=== PATIENT | female | born 1970 | race Two or more races ===

== ENCOUNTER 2024-03-26 14:03 | Outpatient (RCR) | payer MEDICAID, SELFPAY | END 2024-04-11 23:59 | disposition home or self-care (01) | LOC: CPTX 14:03 | PROVIDERS: PCP Student in an Organized Health Care Education/Training Program; Referring Provider Student in an Organized Health Care Education/Training Program; Visit Provider Student in an Organized Health Care Education/Training Program | DX: Z53.8 Procedure and treatment not carried out for other reasons (principal) ==

== ENCOUNTER 2024-08-07 13:00 | Outpatient (RCR) | payer MEDICAID, SELFPAY ==
--- NOTE | 2024-07-19 13:37 | PT.OIERPT ---
PT OP Initial Eval Patient Information Outpatient Physical Therapy Treatment Date: 07/19/24 Visit Reasons: Bilateral pain in legs Medical Diagnosis: M79.605 M79.604 Treatment Dx #1: LBP with B LE radiculopathy Start of Care: 07/19/24 Date of Onset: 3 months ago Smoking Status Smoking Status: Never smoker Initial Assessment Subjective: Pt is 54 yr old khmer speaking female with c/o LBP that radiates into B LE's worse in the gastrocs and heels. Increased pain with bending, and getting up after sitting and turning over in bed at night. She is on disability from picking oranges. PMH: pre-DM, gallstones Imaging: none Pt goal: to get rid of the LBP and LE pain Objective: Trunk ArOM: ? B SB 50% of normal with pain B ? Extension: 30% with relief ? Flexion: 12 from floor with LBP ? B rotation: 60% with pain ? TTP: moderate paraspinals L5-S1 ? Neuro: R SLR: positive Assessment: Pt presents with trunk flexion sensitivity and overlying myofascial pain ? and TTP around L5-S1 consistent with lower lumbar disc bulge(s) with radiculopathy. Pt requires skilled therapy in order to decrease ? pain and improve sitting/standing tolerance and has fair rehab potential. Eval followed by HEP printout. Short Term and Agent Based Modeler Goals 1. Ind with HEP ? 2. Improved sitting/standing tolerance to 60 minutes with <=4/10 LBP ? 3. Decreased lower paraspinal TTP from mod to min 4. Improved HH chore tolerance to at least 30 minutes with <=3/10 LBP and no ?increase in LE ssx Treatment Plan 1. Manual therapy ? 2. Therex ? 3. Modalities as indicated, moist heat, ice, estim, mechanical traction Frequency and Duration: 1-2x a week for 12 visits plus evaluation Certification Dates: 07/19/24 to 10/17/24 Procedure Charges OP PT Eval Mod Complex 30 minutes: Yes
--- NOTE | 2024-07-24 16:18 | PT.ODAYNRPT ---
PT Outpatient Daily Note OP Daily Note Outpatient Physical Therapy Treatment Date: 07/24/24 Visit Reasons: Bilateral pain in legs Subjective: Same as time of evaluation Objective: See F/S for therex MT: STM L/S with flexbar x5' Assessment: Good response and relief with prone extension Plan: Continue per POC Length of Time (minutes) of Treatment: 30 Minutes Procedure Charges Therapeutic Exercise 30 minutes: Yes
--- NOTE | 2024-07-26 13:33 | PT.ODAYNRPT ---
PT Outpatient Daily Note OP Daily Note Outpatient Physical Therapy Treatment Date: 07/26/24 Visit Reasons: Bilateral pain in legs Subjective: Less LBP but increased LE pain since last visit Objective: See F/S for therex MT: STM L/S with flexbar x5' Assessment: Good response and relief with prone extension but she was encouraged to stop the pressups as part of HEP Plan: Continue per POC Length of Time (minutes) of Treatment: 30 Minutes Procedure Charges Therapeutic Exercise 30 minutes: Yes
--- NOTE | 2024-07-31 13:33 | PT.ODAYNRPT ---
PT Outpatient Daily Note OP Daily Note Outpatient Physical Therapy Treatment Date: 07/31/24 Visit Reasons: Bilateral pain in legs Subjective: Pt reports B pain is present, no changes to report in LE symptoms but reports improvement in lumbar spine. Objective: Please see flow sheet for ther ex list. Assessment: Pt able to replicate prone on elbows exercise with good technique indicating progress. Plan: Continue with POC. Length of Time (minutes) of Treatment: 30 Minutes Procedure Charges Therapeutic Exercise 30 minutes: Yes
--- NOTE | 2024-08-07 13:49 | PT.ODAYNRPT ---
PT Outpatient Daily Note OP Daily Note Outpatient Physical Therapy Treatment Date: 08/07/24 Visit Reasons: Bilateral pain in legs Subjective: Pt reports low back is doing better but still has pain on the back of the thigh and knee. Objective: Please see flow sheet for ther ex list. Assessment: Pt instructed on HS stretch, pt c/o pain on posterior knee, pt encouraged to try for HEP. Plan: Continue with poC. Length of Time (minutes) of Treatment: 30 Minutes Procedure Charges Therapeutic Exercise 30 minutes: Yes
== END 2024-08-11 23:59 | disposition home or self-care (01) ==
LOC: CPTX 13:00
DX: M54.16 Radiculopathy, lumbar region (principal)
CPT/HCPCS: 97110; 97162

== ENCOUNTER 2024-08-21 15:00 | Outpatient (RCR) | payer MEDICAID, SELFPAY ==
--- NOTE | 2024-08-14 14:18 | PT.ODAYNRPT ---
PT Outpatient Daily Note OP Daily Note Outpatient Physical Therapy Treatment Date: 08/14/24 Visit Reasons: Bilateral leg pain Subjective: Pt reports progress LBP and notices LE symptoms reducing. Objective: Please see flow sheet for ther ex list. Assessment: Pt presents in clinic with decrease c/o LBP allowing for interventions progression. Plan: Continue with POC. Assess response to added treatment. Length of Time (minutes) of Treatment: 30 Minutes Procedure Charges Therapeutic Exercise 30 minutes: Yes
--- NOTE | 2024-08-16 17:13 | PT.ODAYNRPT ---
PT Outpatient Daily Note OP Daily Note Outpatient Physical Therapy Treatment Date: 08/16/24 Visit Reasons: Bilateral leg pain Subjective: pt. reports therapy is improving pain. She states when she feels an increase in pain her massages her lower back with a foam roller and attempts ther-ex which helps reduce pain. Objective: see flow sheet for ther-ex STM L/S with flexbar x8 min Assessment: STM L/S with flexbar x8min reduces pain in L/S Plan: continue PT per POC until pt. goal has been met Length of Time (minutes) of Treatment: 30 Minutes Procedure Charges Therapeutic Exercise 30 minutes: Yes
--- NOTE | 2024-08-21 18:09 | PT.ODS1RPT ---
PT OP Progress/Discharge Note Date of Service: 08/21/24 Progress Note/DC Note Progress Note/Discharge Note: DC Note Patient Information Visit Reasons: Bilateral leg pain Service Continue Service or Discharge: Discharge Discharge Date: 08/21/24 Status Subjective: Pt reports her back isn't hurting anymore but B knees do hurt over the front. Objective: Trunk AROM: FB: 10 from floor Extension: 50% of full Rotation: full without pain TTP: min to none of lumbar paraspinals Assessment: Pt has attended the eval and 7 Rx sessions with very good progress with therapy goals. Pt has met all goals established at the evaluation including sitting and standing tolerance to 60 mins and HH chores tolerance to 30 mins with <3/10 LBP. Pt isn't having LBP and trunk ROM doesn't affect the B knee pain which likely means the pain is localized to the knees. Pt may benefit from further diagnostic imaging of B knees. Plan: D/C with HEP Procedure Charges Therapeutic Exercise 30 minutes: Yes
== END 2024-09-11 23:59 | disposition home or self-care (01) ==
LOC: CPTX 15:00
DX: M54.16 Radiculopathy, lumbar region (principal)
CPT/HCPCS: 97110

== ENCOUNTER 2024-10-08 10:54 | Outpatient (RCR) | payer MEDICAID, SELFPAY ==
--- NOTE | 2024-10-08 11:10 | PTNOTE_ITS ---
PT OP Initial Eval Patient Information Outpatient Physical Therapy Treatment Date: 10/08/24 Visit Reasons: Bilateral arm pain Medical Diagnosis: M79.602 M79.601 Treatment Dx #1: B UE pain Start of Care: 10/08/24 Date of Onset: January 2024 Smoking Status Smoking Status: Never smoker Initial Assessment Subjective: Pt is 54 yr old slovenian speaking female who c/o neck and B UE pain since last year. 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 She feels burning from elbows down to the hands and the hands go numb. PMH: pre-DM Imaging: Pt goal: to get rid of the pain and numbness of B hands Objective: B shoulder AROM: FF: 140 deg B elbow AROM: Flexion: full Extension: full Resisted wrist extension: negative B TTP: medial epicondyles minimum TTP, upper T/S paraspinals T3-6 ULTT: negative B median and ulnar nerves Phalen's: negative Reverse Phalen's: negative Assessment: Pt presents with low tissue irritability with special testing but B medial epicondyles are mildly TTP. 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 Short Term and Sugar Laboratory Assistant Goals 1. Ind with HEP 2. Decreased TTP of medial elbows from min to none 3. Pt will tolerate HH chores x45 minutes without B UE pain Treatment Plan ?1. Manual therapy ? 2. Therex ? 3. Modalities as indicated, moist heat, ice, estim Frequency and Duration: 1-2x a week for 12 visits plus the evaluation Certification Dates: 10/08/24 to 01/04/25 Procedure Charges OP PT Eval Mod Complex 30 minutes: Yes
== END 2024-10-12 23:59 | disposition home or self-care (01) ==
LOC: CPTX 10:54
PROVIDERS: PCP Student in an Organized Health Care Education/Training Program; Referring Provider Student in an Organized Health Care Education/Training Program; Visit Provider Student in an Organized Health Care Education/Training Program
DX: M79.602 Pain in left arm (principal); M79.601 Pain in right arm; M54.2 Cervicalgia
CPT/HCPCS: 97162